=== PATIENT | female | born 1960 | race Caucasian/White ===

== ENCOUNTER 2016-07-18 11:02 | Emergency (ER) | payer BC ==
--- NOTE | ~2016-07-18 | HP ---
History And Physical [place] [id number] [facility] [place]. [address] NAME: PERCY CARO : 58 STATUS : [facility]#: [id number] AGE: 56 ADM/REG DATE : 07/18/16 MR#: [id number] REPORT SERV DATE: 07/18/16 DICTATED BY: MAURICIO GONZALEZ DATE: 07/18/16 REPORT STATUS : Draft TRANSCRIBED BY: MODPranav DATE: 07/18/16 DATE OF ADMISSION: 07/18/2016 REASON: Left wrist fracture. HISTORY OF PRESENT ILLNESS: Percy Caro is a 56-year-old right-hand dominant customer service sales consultant for [employer]. She was in her usual state of health until early this morning when she was working out and tripped and fell, landing on an outstretched right hand. She noted immediate deformity of her wrist and was brought to [facility] where x-rays were taken, showing a severe distal metaphyseal radius fracture with dorsal angulation (Garcia's fracture). She did not eat or she has been n.p.o. since 7 a.m. No previous injuries to her right wrist and she does note some numbness in her right thumb radial and ulnar aspect but this is mild and somewhat improved from the initial injury. PAST MEDICAL HISTORY: None. PAST SURGICAL HISTORY: 1. Spinal dysraphism [address] Polanco in [place]. 2. Scoliosis surgery by Dr. Mcduffie 1972 in [place]. 3. Tonsillectomy and adenoidectomy. 4. . 5. Right foot posterior tibialis rupture surgery by Dr. Alonzo in [place]. SOCIAL HISTORY: Occasional wine. Negative tobacco. She is and her spouse's name is Urbano who is at bedside. She has 1 son. FAMILY HISTORY: She is adopted. REVIEW OF SYSTEMS: Wears reading glasses. Has hot flashes. Otherwise 13-point review of systems to include constitutional systems, ENT, eyes, skin, GI, , respiratory, cardiac, neurologic, endocrine, psychiatric, musculoskeletal are all negative. ALLERGIES: SHE HAS NO ALLERGIES. PHYSICAL EXAMINATION: GENERAL: A pleasant cooperative 56-year-old female lying in bed with obvious dorsal angulation of the wrist in mild distress. Height 5 feet. Weight 115 pounds. VITAL SIGNS: Heart rate 102, blood pressure 127/68. COR: Regular rate and rhythm. LUNGS: Clear to auscultation. ABDOMEN: Soft, nontender. MUSCULOSKELETAL EXAM: C-spine nontender. The right shoulder, elbow, wrist, and all fingers with full range of motion. No pain noted with range of motion testing. The left upper extremity is held close to the body. The shoulder and elbow are nontender to palpation but limited motion due to wrist fracture. The left wrist has an obvious silver-fork deformity History And Physical [address] [address] NAME: PERCY CARO : 58 STATUS : DEP ER PAT#: [id number] AGE: 56 ADM/REG DATE : 07/18/16 MR#: [id number] REPORT SERV DATE: 07/18/16 DICTATED BY: MAURICIO GONZALEZ DATE: 07/18/16 REPORT STATUS : Draft TRANSCRIBED BY: BINH DATE: 07/18/16 with dorsal displacement and swelling. The fingers have limited range of motion secondary to pain at the fracture site. Fingers have good capillary refill and there is 1+ radial pulse. Ulnar pulse is not able to be palpated secondary to pain in the region. All fingers have good sensation to light touch except for the thumb which has decreased sensation to gross light touch in the pulp as compared to the other fingers. TLS spine is nontender. There is a well-healed posterior incision. Both hips, knees, and ankles with no gross deformities except the right foot with well-healed incisions for the foot. There is full range of motion of the ankles and all feet and 5/5 plantar and dorsiflexion strength. X- rays 3 views of right wrist show a distal radius metaphyseal fracture with dorsal angulation and translation. The carpus appears normal. No other fractures noted. IMPRESSION: Right distal radius fracture from fall earlier today. PLAN: Closed reduction and splinting versus open reduction and internal fixation. The risks and benefits of the surgery were discussed with Fanta and her , Urbano. These risks include, but not limited to, , stroke, heart attack, nerve artery tendon damage, infection, stroke, and loss of reduction as well as the need for repeat surgery in the future for hardware removal. No guarantees made in regard to ultimate success of the operation. All questions were answered by me to their satisfaction. They wished to proceed with surgery. We will plan for this shortly. CATHERINE/BINH Mauricio Gonzalez M.D. / [id number] CC: Leydi Ruiz DO
--- NOTE | ~2016-07-18 | OP ---
Record Of Operation [facility] [address] [place]. [address] NAME: PERCY L[address] : 58 STATUS : [facility]#: [id number] AGE: 56 ADM/REG DATE : 07/18/16 MR#: [id number] REPORT SERV DATE: 07/18/16 DICTATED BY: MAURICIO GONZALEZ DATE: 07/18/16 REPORT STATUS : Draft TRANSCRIBED BY: MODL DATE: 07/18/16 DATE OF PROCEDURE: 07/18/2016 PREOPERATIVE DIAGNOSIS: Left distal radius severely comminuted distal intra-articular fracture (greater than three fracture fragments with displacement from injury earlier today). POSTOPERATIVE DIAGNOSIS: Left distal radius severely comminuted distal intra-articular fracture (greater than three fracture fragments with displacement from injury earlier today). PROCEDURE: Open reduction and internal fixation, using Acumed system. PHYSICIAN: Mauricio Gonzalez M.D. [employer] ATTENDANT: Naveen. ANESTHESIA: General with regional block. ESTIMATED BLOOD LOSS: 25 mL (fracture hematoma). COMPLICATIONS: None. DISPOSITION: The patient tolerated the procedure well and was brought to recovery room in stable condition. PROCEDURE NOTE: After regional block was administered by the Anesthesia Department, the patient was brought to the operating room and placed in a supine position. After general anesthesia was administered, several attempts at closed reduction was carried out, but unsuccessful since the fracture could not get fully reduced and was very unstable. A pneumatic tourniquet was then placed on the left proximal arm and the left upper extremity distal to the tourniquet was prepped and draped in usual sterile manner. A surgical timeout was performed and all were in agreement and afterwards an Esmarch was used to exsanguinate the extremity and tourniquet was inflated. A 15 blade scalpel was used to make a 10 to 12 cm longitudinal incision starting at the volar wrist crease and directed proximally overlying the FCR tendon. After the skin was incised, the FCR tendon was identified and moved ulnarly to allow the superficial fascia of the arm to be incised. After this was incised in line with the FCR tendon, the fractured hematoma which was approximately 20 to 25 mL of blood was evacuated from the area. Finger dissection was brought down to the fracture site which had ripped apart the pronator quadratus muscle and proximally there were some fracture fragments that were displaced from the volar cortex. With the help of traction to the fingers and a [place] elevator, the fractured fragments were pushed back into place and the articular surface was realigned. A volar plate from the Acumed system was placed and two 3.5 mm proximal screws were placed with the most proximal being a locking screw. Each screw was placed by first pre-drilling Record Of Operation [address] [place]. [address] NAME: [address]CY L[address] : 58 STATUS : DEP ER PAT#: [id number] AGE: 56 ADM/REG DATE : 07/18/16 MR#: [id number] REPORT SERV DATE: 07/18/16 DICTATED BY: MAURICIO GONZALEZ DATE: 07/18/16 REPORT STATUS : Draft TRANSCRIBED BY: BINH DATE: 07/18/16 measuring and placing the appropriate length screw. More distally, the smaller 2.3 mm locking screws were placed with ones into the radial styloid. This was done in a similar manner after first pre-drilling, measuring, and placing the appropriate length screws. Excellent fixation and near anatomic anglican was achieved. The wound was then irrigated and the skin was closed with deep and running Monocryl suture. The Steri-Strips were applied and a volar splint was applied. Tourniquet was released. The patient was ready to be taken out of general anesthesia to be brought route to recovery room in stable condition. CATHERINE/BINH Mauricio Gonzalez M.D. / [id number] CC: Leydi Ruiz DO
[2016-07-18 12:41] LABS: BASOPHILS 0.2 %; BASOPHILS ABSOLUTE 0.01 10/3/uL (0.0-0.16); EOSINOPHILS 3.6 %; EOSINOPHILS ABSOLUTE 0.16 10/3/uL (0.0-0.53); HEMATOCRIT 41.2 % (36.0-48.0); HEMOGLOBIN 13.4 g/dL (12.0-16.0); LYMPHOCYTES 37.5 %; LYMPHOCYTES ABSOLUTE 1.67 10/3/uL (0.67-4.30); MEAN CORPUS HGB CONC 32.5 g/dL (32.0-36.0); MEAN CORPUSCULAR HEMOGLOB 31.1 pg (26.0-34.0); MEAN CORPUSCULAR VOLUME 95.6 fL (80-100); MEAN PLATELET VOLUME 10.2 fL (9.2-13.0); MONOCYTES 4.3 %; MONOCYTES ABSOLUTE 0.19 10/3/uL (0.21-1.20); NEUTROPHILS 54.4 %; NEUTROPHILS ABSOLUTE 2.42 10/3/uL (2.02-8.40); PLATELET COUNT 203 10/3/uL (150-400); RED CELL COUNT 4.31 10/6/uL (4.0-5.6)
[2016-07-18 12:42] LABS: ER CBC TAT 0 Hrs 05 Mins; MANUAL DIFF NO %; WHITE BLOOD CELLS 4.5 10/3/uL (4.5-10.5)
[2016-07-18 12:48] LABS: PARTIAL THROMBO TIME 26.9 SEC (22.5-37.2); PROTIME (NOT ORD) 12.9 SEC (12.0-14.5)
[2016-07-18 12:54] LABS: BUN (BLOOD UREA NITROGEN) 19 MG/DL (6-23); CALCIUM, SERUM 9.3 MG/DL (8.5-10.4); CHLORIDE, SERUM 103 MMOL/L (96-112); CO2 (CARBON DIOXIDE) 30 MMOL/L (24-34); CREATININE 0.76 MG/DL (0.55-1.02); GFR AFRICAN AMERICAN 101 ML/MIN (>=60); GFR NON AFRICAN AMERICAN 87 ML/MIN (>=60); GLUCOSE, SERUM 100 MG/DL (60-99); POTASSIUM, SERUM 3.9 MMOL/L (3.5-5.3); SODIUM, SERUM 142 MMOL/L (135-148)
[2016-07-18] MEDS ORDERED: MULTIVIT/MIN PO (14:35)
[2016-07-18] MEDS ORDERED: PROBIOTIC PO (14:36)
[2016-07-18] MEDS ORDERED: VITAMIN D31000 UNIT PO (14:36)
[2016-07-18] MEDS ORDERED: [UNRECOGNIZED DRUG - OTHER] PO (14:38)
== END 2016-07-18 16:47 | disposition home or self-care (01) ==
LOC: ER 11:02
PROVIDERS: Emergency Medicine; Orthopaedic Surgery Hand Surgery
PROC: 0PSJ04Z Reposition Left Radius with Internal Fixation Device, Open Approach (ICD-10-PCS; principal; 2016-07-18 17:30)
DX: S52.612A Displaced fracture of left ulna styloid process, initial encounter for closed fracture (principal); S52.512A Displaced fracture of left radial styloid process, initial encounter for closed fracture; Z88.1 Allergy status to other antibiotic agents; Z79.899 Other long term (current) drug therapy; W19.XXXA Unspecified fall, initial encounter
CPT/HCPCS: 36415; 71010; 73110-LT; 76000; 80048; 81001; 85025; 85610; 85730; 86850; 86900; 86901; 93005; 96374; 96375; 96376; 99285; A9270-GY; C1713; J0690; J1170; J2250; J2405; J2550; J2710; J2795; J3010